=== PATIENT | female | born 1980 ===

== ENCOUNTER 2018-07-03 08:07 | Emergency (ER) | payer SELFPAY ==
[2018-07-03 08:13] VITALS: RESP 18; O2SAT 99; BMI 38.2
--- NOTE | 2018-07-03 08:51 | ED PDOC ---
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 Patient is unsure of LMP and believes she may be 2 months . She denies nausea, vomiting, diarrhea, v aginal bleeding or discharge. PCP: none provided Past Medical History Reviewed: Historical Data, Nursing Documentation, Vital Signs Vital Signs: Last Vital Signs Temp 98 F 07/03/18 08:12 Pulse 75 07/03/18 08:12 Resp 18 07/03/18 08:12 BP 117/76 07/03/18 08:12 Pulse Ox 99 07/03/18 08:12 - Medical History PMH: Arthritis - Family History Family History: States: Unknown Family Hx, Diabetes - Home Medications Home Medications: Ambulatory Orders Medication Instructions Recorded No Known Home Med 07/03/18 - Allergies Allergies/Adverse Reactions: Allergies Allergy/AdvReac Type Severity Reaction Status Date / Time No Known Allergies Allergy Verified 07/03/18 08:29 Review of Systems ROS Statement: Except As Marked, All Systems Reviewed And Found Negative Gastrointestinal: Positive for: Abdominal Pain (lower, right-sided). Negative for: Nausea, Vomiting, Diarrhea Genitourinary Female: Negative for: Dysuria, Hematuria, Vaginal Discharge, Vaginal Bleeding Musculoskeletal: Positive for: Back Pain (lower, right-sided) Physical Exam - Reviewed Nursing Documentation Reviewed: Yes Vital Signs Reviewed: Yes - Physical Exam Appears: Positive for: Non-toxic, No Acute Distress Head Exam: Positive for: ATRAUMATIC, NORMAL INSPECTION, NORMOCEPHALIC Skin: Positive for: Normal Color Eye Exam: Positive for: Normal appearance ENT: Positive for: Normal ENT Inspection. Negative for: Pharyngeal Erythema Neck: Positive for: Normal Cardiovascular/Chest: Positive for: Regular Rate, Rhythm, Chest Non Tender Respiratory: Positive for: Normal Breath Sounds. Negative for: Respiratory Distress Gastrointestinal/Abdominal: Positive for: Normal Exam, Soft. Negative for: Tenderness, Guarding, Rebound Back: Positive for: Normal Inspection. Negative for: L CVA Tenderness, R CVA Tenderness Extremity: Positive for: Normal ROM (upper/lower) Neurologic/Psych: Positive for: Alert, Oriented. Negative for: Motor/Sensory Deficits - Laboratory Results Result Diagrams: 07/03/18 09:00 07/03/18 09:00 Urine POC: Positive - ECG O2 Sat by Pulse Oximetry: 99 (RA) Pulse Ox Interpretation: Normal Medical Decision Making Medical Decision Making: Time: 0848 Initial Plan: * Labs with UA * Tylenol 650mg PO Time: 1000 Re-evaluation of pt shows improvement in back pain but no improvement in RLQ pain. Pt states she has not yet seen an OB for this . Will get pelvic ultrasound to determine if IUP. Time: 1300 Labs unremarkable. US shows early IUP. PT to follow up with gynecology as previously scheduled for July. Return parameters discussed. Scribe Attestation: Documented by Mercedes Alexandre, acting as a scribe for Tracie Horner MD. Provider Scribe Attestation: All medical record entries made by the Scribe were at my direction and personally dictated by me. I have reviewed the chart and agree that the record accurately reflects my personal performance of the history, physical exam, med ica decision making, and the department course for this patient. I have also personally directed, reviewed, and agree with the discharge instructions and disposition. Disposition - Clinical Impression Clinical Impression: Abdominal pain affecting - Disposition Disposition: Routine/Home Disposition Time: 13:00 Condition: IMPROVED Additional Instructions: Take Tylenol for pain. 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 Return to the emergency department if symptoms worsen or if new symptoms develop. Instructions: Pitfalls After Age 35, Stomach Pain in Early Forms: [employer] (Cymro) Print Language: URDU
[2018-07-03 09:21] LABS: BASO % 0.6 % (0.0-2.0); EOS # 0.2 K/uL (0.0-0.7); EOS % 3.8 % (0.0-4.0); HEMOGLOBIN 12.1 g/dL (12.0-16.0); LYMPH # 1.3 K/uL (1.0-4.3); LYMPH % 29.2 % (20.0-40.0); MEAN CELL VOLUME 85.3 fl (81.0-99.0); MEAN CORPUSCULAR HEMOGLOBIN 28.3 pg (27.0-31.0); MEAN CORPUSCULAR HGB CONC 33.2 g/dL (33.0-37.0); MONO # 0.3 K/uL (0.0-0.8); MONO % 6.3 % (0.0-10.0); NEUT # 2.7 K/uL (1.8-7.0); NEUT % 60.1 % (50.0-75.0); NRBC % 0.1 % (0.0-0.0); RBC 4.28 Mil/uL (3.80-5.20); WHITE BLOOD COUNT 4.4 K/uL (4.8-10.8)
[2018-07-03 09:23] LABS: BLOOD UREA NITROGEN 14 mg/dl (7-17); CALCIUM 9.2 mg/dL (8.4-10.2); GFR NON-AFRICAN AMERICAN > 60
[2018-07-03 09:49] LABS: SQUAMOUS EPITHIAL 19 /hpf (0-5); URINE BILIRUBIN NEGATIVE (NEGATIVE); URINE BLOOD NEGATIVE (NEGATIVE); URINE CLARITY CLOUDY (Clear); URINE COLOR YELLOW (YELLOW); URINE GLUCOSE (UA) NEG (NEGATIVE); URINE LEUKOCYTE ESTERASE NEG Leu/uL (Negative); URINE PROTEIN NEGATIVE (NEGATIVE); URINE UROBILINOGEN 0.2-1.0 mg/dL (0.2-1.0)
--- NOTE | 2018-07-03 13:21 | US ---
Date of service: 07/03/2018 PROCEDURE: OB Pelvic Ultrasound HISTORY: , RLQ pain COMPARISON: None available. FINDINGS: UTERUS: Single intrauterine gestational sac. CRL and pole are not visualized on this examination. Gestational sac diameter measures 0.64 cm too small to accurately characterize gestational age. Donna-gestational hemorrhage: None. Uterus measures 9.7 x 7.4 x 5.6 cm. No mass CERVIX: Long and closed. No cervical abnormality seen. RIGHT OVARY: Measures 2.8 x 2.1 x 1.6 cm. No mass. Normal flow. LEFT OVARY: Measures 3.4 x 2.9 x 2.2 cm. No mass. Normal flow. There is a 1.3 x 1.6 x 0.8 cm left paraovarian simple cyst. FREE FLUID: None. OTHER FINDINGS: None. IMPRESSION: Single intrauterine gestational sac too small to accurately characterize gestational age. Clinical and ultrasound follow-up is recommended to assess viability.
[2018-07-03 14:27] VITALS: BP 110/66; PULSE 76; TEMP 97.7
== END 2018-07-03 14:18 | disposition home or self-care (01) ==
LOC: H.ER 08:07
DX: O26.91 Pregnancy related conditions, unspecified, first trimester (principal); R10.2 Pelvic and perineal pain

== ENCOUNTER 2018-07-25 11:10 | Emergency (ER) | payer SELFPAY ==
[2018-07-25 11:22] VITALS: PULSE 76; BMI 38.6
[2018-07-25 11:28] VITALS: O2SAT 98
--- NOTE | 2018-07-25 11:48 | ED PDOC ---
HPI: Abdomen Time Seen by Provider: 07/25/18 11:32 Chief Complaint (Nursing): Female Genitourinary Chief Complaint (Provider): Abdominal pain History Per: Patient History/Exam Limitations: no limitations Onset/Duration Of Symptoms: Days (1) Outside of [place] travel?: No Current Symptoms Are (Timing): Still Present Location Of Pain/Discomfort: RLQ, Suprapubic Quality Of Discomfort: "Pain" Associated Symptoms: Nausea. denies: Vomiting Additional Complaint(s): 37yo female, EGA of 8 weeks, comes to ER reporting right and lower abdominal pain since yesterday. She reports associated nausea, and also states she has mild, very light vaginal bleeding. She states the pain feels like her period cramps. Otherwise, no fever, chills, chest pain, shortness of breath, vomiting or diarrhea. She denies any dysuria, hematuria or back pain. No additional complaints. PMD: None Past Medical History Reviewed: Historical Data, Nursing Documentation, Vital Signs Vital Signs: Last Vital Signs Temp 98.1 F 07/25/18 11:21 Pulse 76 07/25/18 11:21 Resp 17 07/25/18 11:21 BP 131/76 07/25/18 11:21 Pulse Ox 98 07/25/18 11:22 - Medical History PMH: Arthritis - Surgical History Surgical History: No Surg Hx - Family History Family History: States: Unknown Family Hx, Diabetes - Home Medications Home Medications: Ambulatory Orders Medication Instructions Recorded No Known Home Med 07/03/18 - Allergies Allergies/Adverse Reactions: Allergies Allergy/AdvReac Type Severity Reaction Status Date / Time No Known Allergies Allergy Verified 07/25/18 11:22 Review of Systems ROS Statement: Except As Marked, All Systems Reviewed And Found Negative Constitutional: Negative for: Fever, Chills Cardiovascular: Negative for: Chest Pain Respiratory: Negative for: Shortness of Breath Gastrointestinal: Positive for: Nausea, Abdominal Pain. Negative for: Vomiting, Diarrhea Genitourinary Female: Positive for: Vaginal Bleeding (minimal). Negative for: Dysuria, Frequency, Hematuria Musculoskeletal: Negative for: Back Pain Physical Exam - Reviewed Nursing Documentation Reviewed: Yes Vital Signs Reviewed: Yes - Physical Exam Appears: Positive for: Non-toxic, No Acute Distress Head Exam: Positive for: ATRAUMATIC, NORMAL INSPECTION, NORMOCEPHALIC Skin: Positive for: Normal Color Eye Exam: Positive for: EOMI, PERRL Neck: Positive for: Normal, Supple Cardiovascular/Chest: Positive for: Regular Rate, Rhythm. Negative for: Tachycardia Respiratory: Positive for: Normal Breath Sounds. Negative for: Wheezing Gastrointestinal/Abdominal: Positive for: Soft, Tenderness (tenderness noted to right lower quadrant, suprapubic region). Negative for: Mass, Guarding, Rebound Back: Positive for: Normal Inspection. Negative for: L CVA Tenderness, R CVA Tenderness Extremity: Positive for: Normal ROM Neurological/Psych: Positive for: Awake, Alert, Oriented (x 3) - Laboratory Results Result Diagrams: 07/25/18 12:05 07/25/18 12:05 - ECG O2 Sat by Pulse Oximetry: 98 (RA) Pulse Ox Interpretation: Normal Medical Decision Making Medical Decision Making: Impression: Right lower quadrant abdominal pain rule out ectopic, rule out appendicitis Plan: -- Labs -- Urinalysis, UDip -- US OB Transvaginal -- MRI Abdomen w/ contrast 1200 Patient signed out to Dr. Horner pending labs, imaging and ER disposition. ------ Scribe Attestation: Documented by Lalita Edwards acting as a scribe for Manohar Covarrubias MD. Provider Attestation: All medical record entries made by the Scribe were at my direction and personally dictated by me. I have reviewed the chart and agree that the record accurately reflects my personal performance of the history, physical exam, medical decision making, and the department course for this patient. I have also personally directed, reviewed, and agree with the discharge instructions and disposition. Disposition - Clinical Impression Clinical Impression: Vaginal bleeding affecting early - Patient ED Disposition Is Patient to be Admitted: Transfer of Care - Disposition [facility] Disposition: Transfer of Care Disposition Time: 12:00 Condition: STABLE Additional Instructions: [facility] 2 to 3 days for repeat evaluation of . Return to the emergency department if you develop worsened bleeding, worsened pain, dizziness, or other new symptoms. Instructions: Bleeding With (DC) Forms: [employer] (Turkish) Print Language: LITHUANIAN
[2018-07-25 12:29] LABS: BASO % 0.5 % (0.0-2.0); EOS # 0.1 K/uL (0.0-0.7); HEMOGLOBIN 12.3 g/dL (12.0-16.0); LYMPH # 1.2 K/uL (1.0-4.3); LYMPH % 25.8 % (20.0-40.0); MEAN CELL VOLUME 85.7 fl (81.0-99.0); MEAN CORPUSCULAR HEMOGLOBIN 28.3 pg (27.0-31.0); MONO # 0.3 K/uL (0.0-0.8); MONO % 6.2 % (0.0-10.0); NEUT # 3.1 K/uL (1.8-7.0); NEUT % 64.5 % (50.0-75.0); NRBC % 0.2 % (0.0-0.0); RBC 4.35 Mil/uL (3.80-5.20); RED CELL DISTRIBUTION WIDTH 13.9 % (11.5-14.5); WHITE BLOOD COUNT 4.7 K/uL (4.8-10.8)
[2018-07-25 12:35] LABS: ALB/GLOB RATIO 1.3 (1.0-2.1); ALBUMIN 4.2 g/dL (3.5-5.0); ALT/SGPT 21 U/L (9-52); AST/SGOT 21 U/L (14-36); BLOOD UREA NITROGEN 13 mg/dl (7-17); CALCIUM 9.5 mg/dL (8.4-10.2); GFR NON-AFRICAN AMERICAN > 60
--- NOTE | 2018-07-25 12:52 | ED PDOC ---
- Laboratory Results Result Diagrams: 07/25/18 12:05 07/25/18 12:05 Lab Results: Total Bilirubin 0.3 mg/dl (0.2-1.3) 07/25/18 12:05 AST 21 U/L (14-36) 07/25/18 12:05 ALT 21 U/L (9-52) 07/25/18 12:05 Alkaline Phosphatase 59 U/L (38-126) 07/25/18 12:05 Total Protein 7.5 G/DL (6.3-8.2) 07/25/18 12:05 Albumin 4.2 g/dL (3.5-5.0) 07/25/18 12:05 Globulin 3.3 gm/dL (2.2-3.9) 07/25/18 12:05 Albumin/Globulin Ratio 1.3 (1.0-2.1) 07/25/18 12:05 Beta HCG, Quant 27024.00 mIU/mL 07/25/18 12:05 - ECG O2 Sat by Pulse Oximetry: 98 (RA) Pulse Ox Interpretation: Normal Medical Decision Making Medical Decision Makin Patient signed out to me pending labs, US and MRI. 1432 US OB FINDINGS: LMP: 05/17/2018. Prior examinations from the current : 07/03/2018 TECHNIQUE: Real-time 2D imaging, duplex and color Doppler. FINDINGS: Cardiac activity: Absent Measurements: [place] rump length: 0.32 cm Gestational age based on CRL 6 weeks Gestational age 5 weeks 2 days based on gestational sac measurement 1.15 cm Gestational age derived from LMP: 9 weeks 6 days LAURYN based on LMP: 02/21/2019 LAURYN based on biometry: 03/22/2019 Gestational discordance noted. Yolk sac not identified Cervix: No Cervical abnormalities: Negative examination for cervical dilatation or effacement. Closed cervix measuring 4.63 cm Subchorionic hemorrhage: None UTERUS: 6.4 x 8.2 x 9.2 cm. ADNEXA: Right: 2.4 x 2.6 x 2.3 cm. Multiple subcentimeter follicles. Normal Doppler arterial waveform documented. Left: 2.3 x 2.8 x 3.6 cm. Simple cyst 1 x 0.9 x 0.9 cm. Complex cyst 1.8 x 1.3 cm likely hemorrhagic/debris laden. Normal Doppler arterial waveform documented Fluid in the cul-de-sac: None IMPRESSION: Five weeks 2 days intrauterine gestation. No cardiac activity documented. Findings suspicious for but not diagnostic of failure. Correlation with beta HCG and follow-up ultrasound if clinically indicated. Scribe Attestation: Documented by Lalita Edwards acting as a scribe for Tracie Horner MD. Provider Attestation: All medical record entries made by the Scribe were at my direction and personally dictated by me. I have reviewed the chart and agree that the record accurately reflects my personal performance of the history, physical exam, medical decision making, and the department course for this patient. I have also personally directed, reviewed, and agree with the discharge instructions and disposition. Disposition - Clinical Impression Clinical Impression: Vaginal bleeding affecting early - POA Present On Arrival: None - Disposition [facility]] Disposition: Routine/Home Disposition Time: 14:47 Condition: STABLE Additional Instructions: [facility] 2 to 3 days for repeat evaluation of . Return to the emergency department if you develop worsened bleeding, worsened pain, dizziness, or other new symptoms. Instructions: Bleeding With (DC) Forms: [employer] (Vietnamese) Print Language: UZBEK
[2018-07-25 13:06] LABS: SQUAMOUS EPITHIAL 12 /hpf (0-5); URINE BACTERIA OCC (<OCC)
[2018-07-25 13:07] LABS: URINE BILIRUBIN NEGATIVE (NEGATIVE); URINE BLOOD LARGE (NEGATIVE); URINE CLARITY CLOUDY (Clear); URINE COLOR YELLOW (YELLOW); URINE GLUCOSE (UA) NEG (NEGATIVE); URINE LEUKOCYTE ESTERASE MOD Leu/uL (Negative); URINE PROTEIN 30 mg/dL (NEGATIVE); URINE UROBILINOGEN 0.2-1.0 mg/dL (0.2-1.0)
--- NOTE | 2018-07-25 14:27 | US ---
Date of service: 07/25/2018 PROCEDURE: First trimester ultrasound HISTORY: with pain and vaginal bleeding. COMPARISON: 07/03/2018 TECHNIQUE: Standard protocol for this study/examination. FINDINGS: LMP: 05/17/2018. Prior examinations from the current : 07/03/2018 TECHNIQUE: Real-time 2D imaging, duplex and color Doppler. FINDINGS: Cardiac activity: Absent Measurements: [place] rump length: 0.32 cm Gestational age based on CRL 6 weeks Gestational age 5 weeks 2 days based on gestational sac measurement 1.15 cm Gestational age derived from LMP: 9 weeks 6 days LAURYN based on LMP: 02/21/2019 LAURYN based on biometry: 03/22/2019 Gestational discordance noted. Yolk sac not identified Cervix: No Cervical abnormalities: Negative examination for cervical dilatation or effacement. Closed cervix measuring 4.63 cm Subchorionic hemorrhage: None UTERUS: 6.4 x 8.2 x 9.2 cm. ADNEXA: Right: 2.4 x 2.6 x 2.3 cm. Multiple subcentimeter follicles. Normal Doppler arterial waveform documented. Left: 2.3 x 2.8 x 3.6 cm. Simple cyst 1 x 0.9 x 0.9 cm. Complex cyst 1.8 x 1.3 cm likely hemorrhagic/debris laden. Normal Doppler arterial waveform documented Fluid in the cul-de-sac: None IMPRESSION: Five weeks 2 days intrauterine gestation. No cardiac activity documented. Findings suspicious for but not diagnostic of failure. Correlation with beta HCG and follow-up ultrasound if clinically indicated.
[2018-07-25 15:03] VITALS: BP 101/56; RESP 20; TEMP 98.6
== END 2018-07-25 15:03 | disposition home or self-care (01) ==
LOC: H.ER 11:10
DX: O20.9 Hemorrhage in early pregnancy, unspecified (principal)